=== PATIENT | male | born 1950 | race Caucasian/White ===

== ENCOUNTER 2019-03-29 10:00 | Day surgery (SDC) | payer MEDICARE, SELFPAY ==
--- NOTE | 2019-03-26 16:14 | PCM.HP.BLA ---
History and Physical Date of Admission: 03/29/19 HISTORY AND PHYSICAL Pelon Daugherty 1950 REFERRING PHYSICIAN: Evans Cochran DO CHIEF COMPLAINT: Consult HPI: The patient is a 69 year old male with a diagnosis of liver and distant metastases. 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 He then presented with upper abdominal and epigastric pain on March 01 along with complaint of epigastric and abdominal distention. The patient was seen by Dr. Evans Cochran on March 24 after having undergone a CAT scan of the chest abdomen and pelvis on March 22, 2019. CT scan demonstrated the following: IMPRESSION: CECAL MASS WITH ADJACENT INFLAMMATORY CHANGES IN THE RIGHT LOWER QUADRANT. NUMEROUS BILOBED HEPATIC METASTASES. METASTATIC MESENTERIC, UPPER ABDOMINAL AND RETROPERITONEAL LYMPHADENOPATHY. MILD THICKENING OF THE OMENTAL THICKENING, STRANDING/THICKENING IN THE RIGHT PARACOLIC GUTTER AND RIGHT LOWER QUADRANT PERITONEAL NODULE SUSPICIOUS FOR PERITONEAL CARCINOMATOSIS. SMALL VOLUME DEPENDENT PELVIC ASCITES. IMPRESSION: Liver and lung metastases. The patient was scheduled for a liver biopsy given the clinical exam but with return of the cecal mass on CT scan the expectations is likely metastatic colon cancer. I was consult at initially 4 endoscopy to try to obtain a tissue diagnosis of the likely colon cancer. After reviewing the CT scan with Dr. Cochran he is confident that this is a metastatic colon cancer and the patient will also require chemotherapy. Pelon is currently scheduled to undergo chemotherapy and needs vascular access for treatment. The patient denies a prior history of central venous access. The patient is right hand dominant. The patient is being seen by me today at the request of Dr. Cochran for my opinion and advice regarding need for endoscopy and Port-A-Cath placement. PAST MEDICAL HISTORY PAST SURGICAL HISTORY CURRENT MEDICATIONS ALLERGIES: Patient has no known allergies. PERSONAL HISTORY: SOCIAL HISTORY FAMILY HISTORY: FAMILY HISTORY REVIEW OF SYMPTOMS: The review of systems data was entered by the nurse and reviewed by nj Nursing Notes: Camilla Harmon RN 03/25/2019 3:00 PM Signed REVIEW OF SYSTEMS: General: The patient notes fatigue, notes weight loss, denies weight gain, denies feeling hot, and denies feelings of cold. Eyes: The patient denies glaucoma, denies eye injury/surgery, does not wear glasses or contacts. Ear/Nose/Throat: The patient denies allergies, denies hayfever, denies ear infections, and denies bloody noses. Cardiovascular: The patient denies chest pain, denies heart disease, denies high blood pressure,denies cardiac stent, denies prior heart attack, denies irregular heart beat, notes high cholesterol, denies poor circulation, denies heart failure, other cardiac issues, denies claudication, denies cold feet, denies peripheral arterial stent. Respiratory: The patient denies tuberculosis, denies pneumonia, denies frequent cough, denies pulmonary embolism, denies shortness of breath, and denies coughing up blood. Gastrointestinal: The patient denies difficulty swallowing, denies acid reflux, denies ulcers, denies vomiting, denies jaundice/hepatitis, denies gallbladder problems, denies black or tarry stools, denies hemorrhoids, denies bleeding from rectum, denies diverticulitis, denies constipation, denies diarrhea, denies loss of stool control, and notes hernias. Kidney/Bladder: The patient denies kidney stones, denies urine infections, and denies bloody urine. Skin: The patient denies a history of skin cancer, denies bleeding/changing moles, and denies a history of skin rash. Neurologic: The patient denies a history of epilepsy/convulsions, denies headaches, denies head/spinal injuries, and denies stroke/TIA. Psychiatric: The patient denies psychiatric medications, denies depression, and denies voices, denies substance abuse. Endocrine: The patient denies thyroid disorders, denies diabetes, and denies hormonal problems. Hematologic: The patient denies a history of bruising, denies bleeding, and denies anemia, denies blood clots. Infections: The patient denies a history of measles and mumps, denies rheumatic fever, and denies sexually transmitted diseases. Musculoskeletal: The patient denies back pain/injury, denies back problems, denies sciatica, denies knee/foot trouble, denies arthritis, or denies gout. When was patient's last Mammogram screening? N/A Last Colonoscopy: 12/2004 Camilla Harmon RN PHYSICAL EXAMINATION: General: The patient is 69 year old male, well nourished, well hydrated in no acute distress. The patient is oriented to time, place, and person. VITALS: Blood pressure 124/70, pulse 99, temperature 36.7 ?C (98.1 ?F), temperature source Temporal Artery, weight 74 kg (163 lb 3.2 oz), SpO2 95 %. Body mass index is 23.93 kg/m?. HEENT: Normal cephalic, ataumatic, pupils are equally round, sclera are anicteric, mucous membranes are moist, oropharynx is clear. Neck has no masses, asymmetry or lymphadenopathy. Thyroid is unremarkable. Respiratory: Clear to auscultation and percussion. Normal respiratory excursion and pattern. Cardiac: Examination is regular rate and rhythm. Abdominal exam: Soft, tender in the upper abdomen with a palpable mass consistent with his known liver metastases, with no palpable masses. No hepatosplenomegaly. No palpable hernias. Rectal exam: exam deferred Extremities: no clubbing, cyanosis or edema. No adenopathy. 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 We discussed the risks and benefits of the planned endoscopy. I have informed the patient that complications can occur including failure to complete the endoscopy and perforation. The patient had the opportunity to ask questions concerning the planned endoscopy. My staff has also explained the procedure to the patient in understandable terms and has given the patient printed material concerning the procedure. The patient freely consents to surgery. I plan to perform a left sided port a cath placement. The planned surgical procedure was discussed extensively with the patient. The risks, benefits, anticipated outcomes and possible complications were mentioned. My staff has also explained the procedure in understandable terms and the patient was given the option to take printed material concerning the planned procedure. The patient had the opportunity to ask questions concerning the planned procedure. The patient freely consents to the planned procedure. Planned Procedure: left Subclavian portacath - 02645-222 and Fluoroscopic for vascular access - 10098-338-51 Patient Weight Last 1 Encounter Wt Readings: Date: Wt: 03/25/2019 74 kg (163 lb 3.2 oz) Antibiotic: Ancef 2gm IVPB radio electronics officer to OR Planned Anesthetic: MAC with local I do not plan to access the port at the time of surgery. Diagnoses: (C78.7) Liver metastases (HCC) (primary encounter diagnosis) Rory Hills MD
[2019-03-29] VITALS (8 sets, daily range): BP systolic 109–119; BP diastolic 70–83; PULSE 74–109; RESP 14–20; TEMP 36.4–36.6; O2SAT 94–100; BMI 22.1
[2019-03-29 11:11] LABS: Bedside Glucose 112 mg/dL (70-110)
--- NOTE | 2019-03-29 12:45 | EGD_PTH ---
PATIENT: JEVON CARVALHO [place] [facility] [id number] AGE/SX: 69/M ROOM: RE03/29/[address]: Dr. Rory Hills MD : 1950 BED: DIS: 03/29/2019 SPEC #: [id number] RECD: 03/29/19 14:52 STATUS: ZOE FRANKIE #: [id number] RITESH: 03/29/19 12:[address]: Rory Hills DEPT: SURGICAL PATHOLOGY RECD BY: Demi Monk ENTERED: 03/30/19 08:45 SP TYPE: EGD BIOPSY OT DR: Dr. Kurt Sánchez MD Tissues: A - Gastric mucous membrane B - Gastric mucous membrane C - Gastric mucous membrane Procedures: Special Stain Group II Surgery Specimen Level IV Alcian Blue/PAS (control) HEADER OPERATION: [place] [place] DIAGNOSIS: Abnormal CT scan showing cecal mass TISSUE SUBMITTED: A. Antrum biopsy for histo and H. pylori, B. GE junction biopsy, C. Cecal mass biopsy MICROSCOPIC DIAGNOSIS A. Gastric antrum, biopsy: Mild chronic gastritis. See comment. B. Gastroesophageal junction, biopsy: Mild chronic inflammation. 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 No evidence of dysplasia. See comment. C. Cecal mass, biopsy: Invasive well differentiated adenocarcinoma. Fragments of tubular adenoma. See comment. AM:erin 03/31/19 COMMENT A. The results of immunohistochemistry for Helicobacter pylori will be reported separately ([id number]). B. Alcian blue/PAS stain with matched control supports the above diagnosis. C. Immunohistochemistry ([id number]) supports the above diagnosis. No microsatellite instability is detected. Case has been reviewed in consultation with Dr. Waller who concurs with the above diagnosis. IDC:SJ MICROSCOPIC DESCRIPTION Slides are reviewed. GROSS DESCRIPTION A - Received in fixative is one container labeled with the patient's name and designated antrum biopsy. The specimen consists of one irregular fragment of light ramirez soft tissue that measures 0.3 x 0.3 x 0.1 cm. The specimen is totally submitted in one cassette. B - Received in fixative is one container labeled with the patient's name and designated GE junction biopsy. The specimen consists of multiple irregular fragments of light ramirez soft tissue that in aggregate measure 0.6 x 0.2 x 0.1 cm. The specimen is totally submitted in one cassette. C - Received in fixative is one container labeled with the patient's name and designated cecal mass biopsy. The specimen consists of a ramirez-pink polyp measuring 1.5 x 1 x 0.5 cm. This piece is bisected. Also present in the container are multiple pieces of ramirez soft tissue measuring in aggregate 1.5 x 0.5 x 0.1 cm. The entire specimen is submitted in one cassette. / SJ:rg 03/30/19 TC:0 [facility]: [id number] x3, 85674 ADDENDUM ADDENDUM ADDENDUM ADDENDUM ADDENDUM ADDENDUM ADDENDUM ADDENDUM ADDENDUM ADDENDUM 04/30/2019 10:19 ADDENDUM 05/05/2020 08:52 ADDENDUM 04/30/2019 10:19 ADDENDUM 04/30/2019 10:19 ADDENDUM 04/30/2019 10:19 ADDENDUM 04/30/2019 10:19 REPORTS FROM [facility] KRAS RESULTS: Positive KRAS mutation was identified in the provided specimen. NRAS RESULTS: Negative No NRAS mutation was detected in the provided specimen. Please see complete report in e-chart or EMR for further details This addendum is added to incorporate an outside pathology consultation report. The case was examined at [facility] (#[id number]) and the following diagnosis was rendered. A. Stomach, antrum, biopsy: Mild chronic inactive gastritis. Negative for Helicobacter pylori microorganisms. B. Gastroesophageal junction, biopsy: Mildly inflamed cardia-type mucosa with intestinal metaplasia, negative for dysplasia. Reactive squamous mucosa. C. Colon, cecum, mass, biopsy: Tubulovillous adenoma with low-grade dysplasia, extensive high-grade dysplasia and features suspicious for invasive adenocarcinoma. Please see complete above mentioned consultation report in EMR
--- NOTE | 2019-03-29 12:45 | IMM_PTH ---
PATIENT: JEVON CARVALHO LOC: [facility] [place] U#:[id number] AGE/SX: 69/M ROOM: RE03/29/[address]: Dr. Rory Hills MD : 1950 BED: DIS: 03/29/2019 SPEC #: [id number] RECD: 03/30/19 09:00 STATUS: ZOE RENadir #: [id number] RITESH: 03/29/19 12:[address]: Rory Hills DEPT: IMMUNOHISTOCHEMISTRY RECD BY: Liana Erazo ENTERED: 03/30/19 09:01 SP TYPE: IMMUNO OTHR DR: Dr. Kurt Snáchez MD Tissues: A - Stomach, NOS C - Cecum, NOS Procedures: H Pylori (initial) P53 (initial) MSH2 (add) MLH-1 (add) MSH6 (add) Anti-PMS2 (add) MERCER-2 (add) HER2 CLARA (add) P53 (add) KI-67 (initial) PHYSICIAN & [address] [address] SPECIMEN INFORMATION: Tissue Source: A - Antrum biopsy, B - GE junction biopsy, C - Cecal mass biopsy Clinical Info: Abnormal CT scan showing cecal mass Specimen Number: [id number] A-C CPT code: 21548 x3, 58639 x7 METHODOLOGY: Deparaffinized sections of prefer/formalin-fixed tissue or PAP/DQ stained slides are incubated with monoclonal/polyclonal antibodies/oligonucleotide probes. Localization is made via biotin free immunoperoxidase method. Appropriate controls are performed and reacted as expected. Results on target cell population are indicated in the following table: RESULTS: ANTIBODY / CLONE RESULT Block A H Pylori (polyclonal) negative Block B P53 (DO-7) negative Block C MLH1 (M1) positive MSH2 (25D12) positive MSH6 (44) positive PMS2 (MWM3445) positive Ki-67 (30-9) positive, high (>50%) P53 (DO-7) positive, >50% MERCER-2 (SP21) positive Her-2neu (CB11) negative (0-1+) These tests were developed and their performance characteristics determined by [facility]. They may not have been cleared or approved by the U.S. Food and Drug Administration. The FDA has determined that such clearance or approval is not necessary. INTERPRETATION: A. Antrum biopsy: Negative for Helicobacter pylori organisms. B. GE junction, biopsy: No evidence of dysplasia. C. Cecal mass biopsy: Invasive adenocarcinoma. Result of Microsatellite Instability Study: Negative (no loss of mismatch protein; no microsatellite instability detected). AM:erin 04/01/19
[2019-03-29] MEDS: Cefazolin 2 GM in 0.9% Normal Saline 100 ML IV (13:00)
[2019-03-29] MEDS: Bupivacaine Mpf 0.5% 30 ML VIAL (13:40)
--- NOTE | 2019-03-29 14:21 | RAD_ITS ---
STUDY: X-RAY CHEST REASON FOR EXAM: Male, 69 years old. Left subclavian Port-A-Cath placement TECHNIQUE: Single AP portable view of the chest. COMPARISON: None. FINDINGS: EKG leads overlie the chest. A left subclavian Port-A-Cath has been placed, tip is in the proximal SVC. No pneumothorax or mediastinal shift. The lungs are clear and expanded. There is no demonstrated pleural abnormality. Normal size heart. Normal mediastinum and torsten. Normal visualized pulmonary arteries. Normal visualized aortic arch and descending thoracic aorta. Normal visualized thoracic spine. Normal visualized ribs, clavicles, and shoulders. There is no demonstrated abnormality of the visualized soft tissue structures of the upper abdomen. RAD/CXR for Line Placement IMPRESSION: No acute pulmonary process Left subclavian Port-A-Cath tip in the mid SVC Electronically Signed: Mark Busby MD at 15:04 EDT , Service support ,
--- NOTE | 2019-03-29 14:24 | OP.PCM_ITS ---
Report of Operation Date of Procedure: 03/29/19 Pre-Operative Diagnosis: liver metastasis, preseumed cecal cancer, need for IV access Post-Operative Diagnosis: liver metastasis, mild distal esophagitis, cecal cancer, need for IV access, successful left subclavian powerport ref [id number] Lot [id number] exp 08/07/2020 Surgery/Procedure Performed:: left subclavian Port-A-Cath using fluoroscopy, upper endoscopy with biopsy lower endoscopy with biopsy. geophysical observer: None Type of Anesthesia:: Local MAC Anesthesiologist: Min Bermudez - ASA3 Specimen's removed: antral Bx, distal esopahgus, cecal tumor Estimated Blood Loss (mL): 10 Fluids Replaced: 1200 Description of Procedure: The patient was brought to the operating suite. The left subclavian site was marked in the holding area and the patient concurred this was the planned operative site. Sign was performed verifying patient, site, position, skip antibiotic prophylaxis-2 g of Ancef and DVT prophylaxis with SCDs. Following IV sedation, the left neck and chest were prepped and draped in the usual fashion. Timeout was performed verifying patient, site, position. Local anesthetic was injected and a Seldinger needle was used to access the left subclavian vein without difficulty. Under fluoroscopic control, a guidewire was inserted and advanced the SVC RA region. Local anesthetic was injected and incision made and pocket created for the port site. Next the catheter was tunneled from the wire site incision to the port site incision. Under fluoroscopic control introducer sheath and dilator were inserted over the wire. The wire and dilator removed. The catheter was fed through the introducer suture sheath and adjusted to the SVC RA region. There was good return of venous blood and easy inflow of saline through the system. Fluoroscopy demonstrated good positioning of the catheter. Next the catheter was cut to length affixed to the port with the locking ring and secured in the pocket with 2-2-0 Prolene sutures. Subcutaneous fat closed with interrupted 3-0 Vicryl suture. Skin closed with 4-0 Biosyn interrupted and running subcuticular sutures. Fluoroscopy demonstrated good position of the system. The port was accessed. There was good return of venous blood. Inflow of saline was easy. The port was then flushed with 2-3 cc of 100 unit per heparin solution. A dressing was applied. upper and lower endoscopy was then performed. This was documented through provation The patient was brought to recovery room in stable condition. - Admit VTE Documentation VTE Present on Admission: No VTE Mechan Device Prophylaxis: SCD's VTE Pharm Prophylaxis ordered?: No
--- NOTE | 2019-03-29 14:35 | OP.ENDO_ITS ---
Patient Name: Pelon Daugherty Procedure Date: 03/29/2019 1:55 PM Date of : 1950 Age: 69 Procedure: Upper GI endoscopy Indications: Abnormal CT of the GI tract Providers: Rory Hills MD Medicines: Monitored Anesthesia Care Complications: No immediate complications. Procedure: Pre-Anesthesia Assessment: - Prior to the procedure, a History and Physical was performed, and patient medications and allergies were reviewed. The patient is competent. The risks and benefits of the procedure and the sedation options and risks were discussed with the patient. All questions were answered and informed consent was obtained. Patient identification and proposed procedure were verified by the physician, the nurse and the executive coordinator in the procedure room. Mental Status Examination: alert and oriented. Airway Examination: normal oropharyngeal airway and neck mobility. Respiratory Examination: clear to auscultation. CV Examination: normal. Prophylactic Antibiotics: The patient does not require prophylactic antibiotics. Prior Anticoagulants: The patient has taken no previous anticoagulant or antiplatelet agents. ASA Grade Assessment: III - A patient with severe systemic disease. After reviewing the risks and benefits, the patient was deemed in satisfactory condition to undergo the procedure. The anesthesia plan was to use monitored anesthesia care (MAC). Immediately prior to administration of medications, the patient was re-assessed for adequacy to receive sedatives. The heart rate, respiratory rate, oxygen saturations, blood pressure, adequacy of pulmonary ventilation, and response to care were monitored throughout the procedure. The physical status of the patient was re-assessed after the procedure. After obtaining informed consent, the endoscope was passed under direct vision. Throughout the procedure, the patient's blood pressure, pulse, and oxygen saturations were monitored continuously. The gastroscope was introduced through the mouth, and advanced to the jejunum. The upper GI endoscopy was accomplished without difficulty. The patient tolerated the procedure well. Scope In: 1:57:39 PM Scope Out: 2:02:06 PM Total Procedure Duration Time 0 hours 4 minutes 27 seconds Findings: The examined jejunum was normal. The in the duodenum was normal. The entire examined stomach was normal. Biopsies were taken with a cold forceps for histology. Non-severe esophagitis with no bleeding was found. Biopsies were taken with a cold forceps for histology. The exam of the esophagus was otherwise normal. Impression: - Normal examined jejunum. - Normal. - Normal stomach. Biopsied. - Non-severe reflux esophagitis. Biopsied. Recommendation: - Await pathology results. - Return to my office in 1 week. - Continue present medications. Procedure Code(s): --- Professional --- 31101, Esophagogastroduodenoscopy, flexible, transoral; with biopsy, single or multiple CPT copyright 2017 [employer]. All rights reserved. The codes documented in this report are preliminary and upon livestock inspector review may be revised to meet current compliance requirements. Rory Hills MD 03/29/2019 2:35:01 PM This report has been signed electronically. Number of Addenda: 0 Note Initiated On: 03/29/2019 1:55 PM
--- NOTE | 2019-03-29 14:39 | OP.ENDO_ITS ---
Patient Name: Pelon Daugherty Procedure Date: 03/29/2019 2:04 PM Date of : 1950 Age: 69 Procedure: Colonoscopy Indications: Abnormal CT of the GI tract Providers: Rory Hills MD Medicines: Monitored Anesthesia Care Patient Profile: This is a 69 year old male. Refer to note in patient chart for documentation of history and physical. Last Colonoscopy: date unknown. Unable to locate last colonoscopy report. Complications: No immediate complications. Procedure: Pre-Anesthesia Assessment: - Prior to the procedure, a History and Physical was performed, and patient medications and allergies were reviewed. The patient is competent. The risks and benefits of the procedure and the sedation options and risks were discussed with the patient. All questions were answered and informed consent was obtained. Patient identification and proposed procedure were verified by the physician, the nurse and the cable splicer apprentice in the procedure room. Mental Status Examination: alert and oriented. Airway Examination: normal oropharyngeal airway and neck mobility. Respiratory Examination: clear to auscultation. CV Examination: normal. Prophylactic Antibiotics: The patient does not require prophylactic antibiotics. Prior Anticoagulants: The patient has taken no previous anticoagulant or antiplatelet agents. ASA Grade Assessment: III - A patient with severe systemic disease. After reviewing the risks and benefits, the patient was deemed in satisfactory condition to undergo the procedure. The anesthesia plan was to use monitored anesthesia care (MAC). Immediately prior to administration of medications, the patient was re-assessed for adequacy to receive sedatives. The heart rate, respiratory rate, oxygen saturations, blood pressure, adequacy of pulmonary ventilation, and response to care were monitored throughout the procedure. The physical status of the patient was re-assessed after the procedure. After I obtained informed consent, the scope was passed under direct vision. Throughout the procedure, the patient's blood pressure, pulse, and oxygen saturations were monitored continuously. The Colonoscope was introduced through the anus and advanced to the cecum, identified by its appearance. The colonoscopy was performed without difficulty. The patient tolerated the procedure well. The quality of the bowel preparation was good. Scope In: 2:04:42 PM Scope Out: 2:18:30 PM Total Procedure Duration Time 0 hours 13 minutes 48 seconds Findings: An infiltrative partially obstructing large mass was found in the cecum. The mass was partially circumferential. The mass measured five cm in length. Oozing was present. This was biopsied with a hot snare for histology. Verification of patient identification for the specimen was done. The exam was otherwise without abnormality. The retroflexed view of the distal rectum and anal verge was normal and showed no anal or rectal abnormalities. Impression: - Likely malignant partially obstructing tumor in the cecum. Biopsied. - The examination was otherwise normal. - The distal rectum and anal verge are normal on retroflexion view. Recommendation: - Await pathology results. - Return to my office in 1 week. - Resume previous diet. - Continue present medications. - No recommendation at this time regarding repeat colonoscopy. Procedure Code(s): --- Professional --- 65008, Colonoscopy, flexible; with removal of tumor(s), polyp(s), or other lesion(s) by snare technique CPT copyright 2017 [employer]. All rights reserved. The codes documented in this report are preliminary and upon hospital nurse liaison review may be revised to meet current compliance requirements. Rory Hills MD 03/29/2019 2:38:50 PM This report has been signed electronically. Number of Addenda: 0 Note Initiated On: 03/29/2019 2:04 PM
--- NOTE | 2019-03-29 15:19 | DCINST_ITS ---
Discharge Diet: No Restrictions - Pain medication may cause nausea. You should typically eat light foods as you take your pain medication. Discharge Activity: Return to Normal Activity, May Shower - with the bandage in place 1-2 days after surgery. DO NOT SHOWER WHEN YOUR PORT IS ACCESSED. Additional Activity Instructions:: May not drive, work with heavy equipment, or sign legal documents for [address] you are no longer taking narcotic pain medications. You may drive when you are no longer taking pain medications. Additional Dressing/Incision Instructions:: Leave the bandage on for 2-3 days. When you remove the bandage, leave the steri-strips intact until they fall off. Allergies/Adverse Reactions: Allergies No Known Allergies Allergy (Verified 03/26/19 09:54) Medications to take at Discharge Ibuprofen [Advil] 200 mg PO DAILY PRN 03/26/19 Ondansetron [Zofran] 8 mg PO Q8H PRN PRN #12 tab 03/29/19 Oxycodone HCl/Acetaminophen [Oxycodone-Acetaminophen 5-325] 1 ea PO QHS #28 tab 03/29/19 The following prescriptions were given: Oxycodone HCl/Acetaminophen [Oxycodone-Acetaminophen 5-325] 1 ea PO QHS #28 tab Prescription Printed Ondansetron [Zofran] 8 mg PO Q8H PRN PRN #12 tab PRN Reason: Nausea Prescription Printed Primary Care Physician: Kurt Sánchez MD [Primary Care Provider] - Test Results: Test results from this visit will be discussed in further detail at your follow- up appointment, if applicable. Please Follow Up With: Rory Hills MD - [phone] When: April 01, at 8:30am
== END 2019-03-29 15:51 | disposition home or self-care (01) ==
LOC: SDC 10:08 → AC 10:10
PROVIDERS: Family Provider Family Medicine; PCP Family Medicine; Referring Provider Surgery; Visit Provider Surgery
PROC: (CPT 36561; principal; 2019-03-29 11:45)
PROC: 0DJD8ZZ Inspection of Lower Intestinal Tract, Via Natural or Artificial Opening Endoscopic (ICD-10-PCS; CPT 45378; principal; 2019-03-29 12:40)
DX: Z45.2 Encounter for adjustment and management of vascular access device (principal); C18.0 Malignant neoplasm of cecum; C78.7 Secondary malignant neoplasm of liver and intrahepatic bile duct; K21.0 Gastro-esophageal reflux disease with esophagitis; E78.5 Hyperlipidemia, unspecified; E11.9 Type 2 diabetes mellitus without complications; Z87.891 Personal history of nicotine dependence
CPT/HCPCS: 00532; 36561; 43239; 45385; 71045; 77001; 82962; 88305; 88313; 88341; 88342; J7120; C1788; J2405